=== PATIENT | female | born 1940 | race Two or more races ===

== ENCOUNTER → 2017-06-24 | Emergency (ER) | payer OTHER ==
[~2017-06-24] VITALS: Ht 170.2 cm; Wt 72.6 kg
[~2017-06-24] MED LIST: AMLODIPINE BES2.5 MG
== END | disposition home or self-care (01) ==
LOC: ER 03:49
DX: I10 Essential (primary) hypertension (principal)

== ENCOUNTER 2017-08-09 07:45 | Outpatient (CLI) | payer OTHER | END 2017-08-09 08:14 | disposition home or self-care (01) | LOC: LAB 07:45 | DX: D50.0 Iron deficiency anemia secondary to blood loss (chronic) (principal); E11.65 Type 2 diabetes mellitus with hyperglycemia; Z12.11 Encounter for screening for malignant neoplasm of colon; K62.5 Hemorrhage of anus and rectum; R10.84 Generalized abdominal pain; E78.2 Mixed hyperlipidemia; E03.8 Other specified hypothyroidism; N39.0 Urinary tract infection, site not specified; E55.9 Vitamin D deficiency, unspecified; M81.0 Age-related osteoporosis without current pathological fracture ==

== ENCOUNTER 2017-08-18 12:27 | Outpatient (CLI) | payer OTHER | END 2017-08-18 16:04 | disposition home or self-care (01) | LOC: SONOGRAMA 12:27 | DX: E04.1 Nontoxic single thyroid nodule (principal) ==

== ENCOUNTER 2018-06-07 08:27 | Outpatient (CLI) | payer OTHER | END 2018-06-07 08:35 | disposition home or self-care (01) | LOC: LAB 08:27 | DX: D50.0 Iron deficiency anemia secondary to blood loss (chronic) (principal); E11.69 Type 2 diabetes mellitus with other specified complication; E03.8 Other specified hypothyroidism; E51.8 Other manifestations of thiamine deficiency; E55.9 Vitamin D deficiency, unspecified; Z12.11 Encounter for screening for malignant neoplasm of colon; K62.5 Hemorrhage of anus and rectum; R10.9 Unspecified abdominal pain ==

== ENCOUNTER 2018-11-06 07:42 | Outpatient (CLI) | payer OTHER | END 2018-11-06 07:58 | disposition home or self-care (01) | LOC: TOM 07:42 | DX: K57.20 Diverticulitis of large intestine with perforation and abscess without bleeding (principal) ==

== ENCOUNTER → 2018-11-15 | Outpatient (CLI) | payer OTHER | END | disposition home or self-care (01) | LOC: LAB 09:45 | DX: D50.0 Iron deficiency anemia secondary to blood loss (chronic) (principal); E11.69 Type 2 diabetes mellitus with other specified complication; E78.00 Pure hypercholesterolemia, unspecified; E03.8 Other specified hypothyroidism; N39.0 Urinary tract infection, site not specified ==

== ENCOUNTER → 2019-02-24 | Outpatient (CLI) | payer OTHER | END | disposition home or self-care (01) | LOC: RAD 15:40 | DX: M54.2 Cervicalgia (principal); M54.6 Pain in thoracic spine ==

== ENCOUNTER 2019-08-30 12:29 | Outpatient (CLI) | payer OTHER | END 2019-08-30 12:36 | disposition home or self-care (01) | LOC: LAB 12:29 | DX: E11.9 Type 2 diabetes mellitus without complications (principal); E78.00 Pure hypercholesterolemia, unspecified; E03.8 Other specified hypothyroidism; N39.0 Urinary tract infection, site not specified; E55.9 Vitamin D deficiency, unspecified; D50.0 Iron deficiency anemia secondary to blood loss (chronic) ==

== ENCOUNTER 2019-08-30 13:06 | Outpatient (CLI) | payer OTHER | END 2019-08-30 14:12 | disposition home or self-care (01) | LOC: NUCLEAR 13:06 | DX: I82.403 Acute embolism and thrombosis of unspecified deep veins of lower extremity, bilateral (principal) ==

== ENCOUNTER → 2019-08-31 10:17 | Outpatient (CLI) | payer OTHER | END | disposition home or self-care (01) | LOC: LAB 10:17 | DX: E11.9 Type 2 diabetes mellitus without complications (principal); E03.8 Other specified hypothyroidism; D50.0 Iron deficiency anemia secondary to blood loss (chronic); N39.0 Urinary tract infection, site not specified; E55.9 Vitamin D deficiency, unspecified; E78.00 Pure hypercholesterolemia, unspecified ==

== ENCOUNTER 2019-10-10 11:46 | Emergency (ER) | payer OTHER ==
[~2019-10-10] VITALS: Ht 160 cm; Wt 61.2 kg
== END 2019-10-10 14:57 | disposition home or self-care (01) ==
LOC: ER 11:46
DX: B34.9 Viral infection, unspecified (principal); R53.81 Other malaise; Z03.818 Encounter for observation for suspected exposure to other biological agents ruled out

== ENCOUNTER 2019-12-29 10:10 | Outpatient (CLI) | payer OTHER | END 2019-12-29 10:25 | disposition home or self-care (01) | LOC: NUCLEAR 10:10 | PROVIDERS: ATTEND Internal Medicine | DX: I82.502 Chronic embolism and thrombosis of unspecified deep veins of left lower extremity (principal) ==

== ENCOUNTER 2020-01-01 08:53 | Outpatient (CLI) | payer OTHER | END 2020-01-01 15:00 | disposition home or self-care (01) | LOC: LAB 08:53 | PROVIDERS: ATTEND Internal Medicine | DX: I82.502 Chronic embolism and thrombosis of unspecified deep veins of left lower extremity (principal); E11.69 Type 2 diabetes mellitus with other specified complication; E03.8 Other specified hypothyroidism; E78.00 Pure hypercholesterolemia, unspecified; N39.0 Urinary tract infection, site not specified; D50.0 Iron deficiency anemia secondary to blood loss (chronic) ==

== ENCOUNTER 2020-03-01 14:02 | Outpatient (CLI) | payer OTHER | END 2020-03-01 14:34 | disposition home or self-care (01) | LOC: RAD 14:02 | PROVIDERS: ATTEND Physical Medicine & Rehabilitation | DX: M16.11 Unilateral primary osteoarthritis, right hip (principal); M54.5 Low back pain ==

== ENCOUNTER → 2020-03-17 | Outpatient (CLI) | payer OTHER | END | disposition home or self-care (01) | LOC: MRI 13:15 | PROVIDERS: ATTEND Internal Medicine | DX: M16.0 Bilateral primary osteoarthritis of hip (principal); M25.551 Pain in right hip; M54.5 Low back pain | CPT/HCPCS: 72148; 73721 ==

== ENCOUNTER 2020-04-26 | Outpatient (CLI) | payer OTHER | END 2020-04-26 16:53 | disposition home or self-care (01) | LOC: PPH VACUNA | PROVIDERS: ATTEND Emergency Medicine Pediatric Emergency Medicine | DX: Z23 Encounter for immunization (principal) ==

== ENCOUNTER 2020-05-01 10:53 | Outpatient (CLI) | payer OTHER | END 2020-05-01 10:58 | disposition home or self-care (01) | LOC: LAB 10:53 | PROVIDERS: ATTEND Internal Medicine | DX: D64.89 Other specified anemias (principal); I10 Essential (primary) hypertension; E11.9 Type 2 diabetes mellitus without complications; E78.00 Pure hypercholesterolemia, unspecified; N39.0 Urinary tract infection, site not specified; E03.8 Other specified hypothyroidism; R19.5 Other fecal abnormalities; E55.9 Vitamin D deficiency, unspecified ==

== ENCOUNTER → 2020-05-02 13:11 | Outpatient (CLI) | payer OTHER | END | disposition home or self-care (01) | LOC: LAB 13:11 | PROVIDERS: ATTEND Internal Medicine | DX: D64.89 Other specified anemias (principal); I10 Essential (primary) hypertension; E11.9 Type 2 diabetes mellitus without complications; E78.00 Pure hypercholesterolemia, unspecified; N39.0 Urinary tract infection, site not specified; E03.8 Other specified hypothyroidism; R19.5 Other fecal abnormalities; E55.9 Vitamin D deficiency, unspecified ==

== ENCOUNTER 2020-05-02 13:44 | Outpatient (CLI) | payer OTHER | END 2020-05-02 13:51 | disposition home or self-care (01) | LOC: NUCLEAR 13:44 | PROVIDERS: ATTEND Orthopaedic Surgery | DX: M81.0 Age-related osteoporosis without current pathological fracture (principal) ==

== ENCOUNTER 2020-05-09 14:38 | Outpatient (CLI) | payer OTHER | END 2020-05-09 14:44 | disposition HB | LOC: RAD 14:38 | PROVIDERS: ATTEND Orthopaedic Surgery | DX: M16.0 Bilateral primary osteoarthritis of hip (principal); Z76.89 Persons encountering health services in other specified circumstances ==

== ENCOUNTER 2020-05-12 10:50 | Outpatient (CLI) | payer OTHER | END 2020-05-12 10:59 | disposition home or self-care (01) | LOC: LAB 10:50 | PROVIDERS: ATTEND Ophthalmology | DX: D68.8 Other specified coagulation defects (principal); H25.012 Cortical age-related cataract, left eye ==

== ENCOUNTER 2020-05-17 09:43 | Outpatient (CLI) | payer OTHER | END 2020-05-17 15:00 | disposition home or self-care (01) | LOC: PPH VACUNA 09:43 | PROVIDERS: ATTEND Emergency Medicine Pediatric Emergency Medicine | DX: Z23 Encounter for immunization (principal) ==

== ENCOUNTER → 2020-06-20 10:28 | Outpatient (CLI) | payer OTHER | END | disposition home or self-care (01) | LOC: LAB 10:28 | PROVIDERS: ATTEND Orthopaedic Surgery Adult Reconstructive Orthopaedic Surgery | DX: D68.8 Other specified coagulation defects (principal); I11.9 Hypertensive heart disease without heart failure ==

== ENCOUNTER → 2020-06-20 | Outpatient (CLI) | payer OTHER | END | disposition home or self-care (01) | LOC: RAD 11:39 | PROVIDERS: ATTEND Orthopaedic Surgery Adult Reconstructive Orthopaedic Surgery | DX: I11.9 Hypertensive heart disease without heart failure (principal) ==

== ENCOUNTER 2020-08-29 13:11 | Outpatient (CLI) | payer OTHER | END 2020-08-29 13:22 | disposition home or self-care (01) | LOC: TOM 13:11 | DX: M51.86 Other intervertebral disc disorders, lumbar region (principal) ==

== ENCOUNTER 2020-11-07 07:59 | Outpatient (CLI) | payer OTHER | END 2020-11-07 08:19 | disposition home or self-care (01) | LOC: LAB 07:59 | PROVIDERS: ATTEND Internal Medicine | DX: Z13.828 Encounter for screening for other musculoskeletal disorder (principal); Z13.89 Encounter for screening for other disorder; Z13.220 Encounter for screening for lipoid disorders; Z13.1 Encounter for screening for diabetes mellitus; Z12.11 Encounter for screening for malignant neoplasm of colon; Z11.3 Encounter for screening for infections with a predominantly sexual mode of transmission; R79.82 Elevated C-reactive protein (CRP) ==

== ENCOUNTER 2020-11-07 08:55 | Outpatient (CLI) | payer OTHER | END 2020-11-07 09:02 | disposition home or self-care (01) | LOC: RAD 08:55 | PROVIDERS: ATTEND Orthopaedic Surgery Adult Reconstructive Orthopaedic Surgery | DX: M16.12 Unilateral primary osteoarthritis, left hip (principal); Z96.641 Presence of right artificial hip joint ==

== ENCOUNTER 2020-11-08 10:54 | Outpatient (CLI) | payer OTHER | END 2020-11-08 10:58 | disposition home or self-care (01) | LOC: LAB 10:54 | DX: Z13.828 Encounter for screening for other musculoskeletal disorder (principal); Z13.89 Encounter for screening for other disorder; Z13.220 Encounter for screening for lipoid disorders; Z13.1 Encounter for screening for diabetes mellitus; Z12.11 Encounter for screening for malignant neoplasm of colon; Z11.3 Encounter for screening for infections with a predominantly sexual mode of transmission; R79.82 Elevated C-reactive protein (CRP) ==

== ENCOUNTER → 2020-11-11 10:04 | Outpatient (CLI) | payer OTHER | END | disposition home or self-care (01) | LOC: LAB 10:04 | PROVIDERS: ATTEND Internal Medicine | DX: N39.0 Urinary tract infection, site not specified (principal); E78.49 Other hyperlipidemia; R94.6 Abnormal results of thyroid function studies ==

== ENCOUNTER 2020-12-11 09:38 | Outpatient (CLI) | payer OTHER | END 2020-12-11 09:41 | disposition home or self-care (01) | LOC: NUCLEAR 09:38 | PROVIDERS: ATTEND Internal Medicine | DX: I82.493 Acute embolism and thrombosis of other specified deep vein of lower extremity, bilateral (principal); I82.401 Acute embolism and thrombosis of unspecified deep veins of right lower extremity ==

== ENCOUNTER 2021-08-13 08:00 | Outpatient (CLI) | payer OTHER | END 2021-08-13 08:30 | disposition home or self-care (01) | LOC: PPH VACUNA 08:00 | PROVIDERS: ATTEND Emergency Medicine Pediatric Emergency Medicine | DX: Z23 Encounter for immunization (principal) ==

== ENCOUNTER 2021-12-27 10:29 | Outpatient (CLI) | payer OTHER | END 2021-12-27 10:34 | disposition home or self-care (01) | LOC: TOM 10:29 | PROVIDERS: ATTEND Internal Medicine | DX: K86.89 Other specified diseases of pancreas (principal) ==

== ENCOUNTER 2022-01-23 12:51 | Outpatient (CLI) | payer OTHER | END 2022-01-23 13:01 | disposition home or self-care (01) | LOC: PPH VACUNA 12:51 | PROVIDERS: ATTEND Emergency Medicine Pediatric Emergency Medicine | DX: Z23 Encounter for immunization (principal) ==

== ENCOUNTER → 2022-07-31 | Outpatient (CLI) | payer OTHER | END | disposition home or self-care (01) | LOC: RAD 14:23 | PROVIDERS: ATTEND Orthopaedic Surgery Adult Reconstructive Orthopaedic Surgery | DX: M16.12 Unilateral primary osteoarthritis, left hip (principal); Z96.641 Presence of right artificial hip joint ==

== ENCOUNTER 2023-07-30 14:15 | Outpatient (CLI) | payer OTHER | END 2023-07-30 14:22 | disposition home or self-care (01) | LOC: SONOGRAMA 14:15 | PROVIDERS: ATTEND Internal Medicine | DX: R31.9 Hematuria, unspecified (principal) ==

== ENCOUNTER → 2023-08-01 07:56 | Outpatient (CLI) | payer OTHER | END | disposition home or self-care (01) | LOC: NUCLEAR 07:56 | PROVIDERS: ATTEND Internal Medicine | DX: I82.409 Acute embolism and thrombosis of unspecified deep veins of unspecified lower extremity (principal) ==

== ENCOUNTER 2024-05-18 07:02 | Outpatient (CLI) | payer OTHER | END 2024-05-18 07:08 | disposition home or self-care (01) | LOC: NUCLEAR 07:02 | PROVIDERS: ATTEND Internal Medicine | DX: I20.1 Angina pectoris with documented spasm (principal) | CPT/HCPCS: 78452; 93017; A9500 ==

== ENCOUNTER 2024-08-09 10:44 | Emergency (ER) | payer OTHER ==
[~2024-08-09] VITALS: Ht 160 cm; Wt 67.6 kg
[2024-08-09 11:01] VITALS: BP 132/79; O2SAT 98
[2024-08-09] MEDS ORDERED: LIPITOR20 MG (11:02)
[2024-08-09] MEDS ORDERED: ELIQUIS2.5 MG (11:02)
[2024-08-09] MEDS ORDERED: METRONIDAZOLE/SODIUM CHLORIDE 500 MG/100 ML PIGGYBACK IV ONE ×2 (12:15→12:21)
[2024-08-09] MEDS ORDERED: KETOROLAC TROMETHAMINE 30 MG VIAL IV ONE (12:15)
[2024-08-09] MEDS ORDERED: KETOROLAC TROMETHAMINE 30 MG VIAL ONE (12:20)
[2024-08-09 12:47] LABS: HEMATOCRIT 36.4 % (36.0-45.00); MEAN CELL VOLUME 84.3 fL (80.00-100.00); MEAN CORPUSCULAR HEMOGLOBIN 27.7 pg (27.00-32.0); MEAN CORPUSCULAR HGB CONC 32.8 g/dl (32.0-36.0); PLATELET COUNT 263 K/uL (150-450); RED BLOOD COUNT 4.32 M/uL (4.00-6.00); RED CELL DISTRIBUTION WIDTH 14.2 % (11.5-14.5)
[2024-08-09 13:07] LABS: ALBUMIN 3.4 gm/dL (3.4-5.0); BILIRUBIN TOTAL 0.61 mg/dL (0.3-1.2); CALCIUM 9.1 mg/dL (8.5-10.1); CREATININE SERUM 0.79 mg/dL (0.55-1.02); GFR 69.85; GLOBULINA 3.8 G/DL (2.4-3.5); POTASSIUM 4.41 mEq/L (3.5-5.1); TOTAL PROTEIN 7.2 gm/dL (6.4-8.2)
[2024-08-09 13:24] LABS: URINE APPEARANCE Clear; URINE BILIRRUBIN Negative (NEGATIVE); URINE BLOOD Small; URINE COLOR Yellow; URINE GLUCOSE Negative (NEGATIVE); URINE KETONE Negative (NEGATIVE); URINE LEUKOCYTE Negative; URINE NITRATE Negative; URINE PROTEIN Negative (NEGATIVE); URINE UROBILINOGEN 0.2 E.U./dl
[2024-08-09 13:25] LABS: URINE EPITHELIAL CELLS 3.9 uL (0.0-38.8); URINE RBC 40.6 uL (0.0-20.8); URINE WBC 5.8 uL (0.0-23.2)
[2024-08-09 13:37] LABS: URINE CAST 0.44 uL (0.0-1.40)
== END 2024-08-09 17:07 | disposition home or self-care (01) ==
LOC: ER 10:45
PROVIDERS: Emergency Medicine
DX: K57.32 Diverticulitis of large intestine without perforation or abscess without bleeding (principal); D25.9 Leiomyoma of uterus, unspecified; N28.1 Cyst of kidney, acquired; I82.409 Acute embolism and thrombosis of unspecified deep veins of unspecified lower extremity; I10 Essential (primary) hypertension
CPT/HCPCS: 36415; 74176; 96365; 99283; J1885; J3490

== ENCOUNTER 2024-08-20 11:19 | Outpatient (CLI) | payer OTHER ==
[~2024-08-20 11:19] MED LIST changes: +ELIQUIS2.5 MG; +LIPITOR20 MG
== END 2024-08-20 11:24 | disposition home or self-care (01) ==
LOC: RAD 11:19
PROVIDERS: ATTEND Internal Medicine
DX: M54.50 Low back pain, unspecified (principal); M16.12 Unilateral primary osteoarthritis, left hip; Z96.641 Presence of right artificial hip joint

== ENCOUNTER 2025-02-03 09:11 | Outpatient (CLI) | payer OTHER | END 2025-02-03 09:12 | disposition home or self-care (01) | LOC: NUCLEAR 09:11 | PROVIDERS: ATTEND Internal Medicine | DX: I82.501 Chronic embolism and thrombosis of unspecified deep veins of right lower extremity (principal); I87.2 Venous insufficiency (chronic) (peripheral) ==